=== PATIENT | female | born 2000 | race Two or more races ===

== ENCOUNTER 2024-03-20 09:25 | Outpatient (RCR) | payer MEDICAID, SELFPAY ==
--- NOTE | 2024-03-20 14:38 | CTCCONSULT_ITS ---
[address] [address] RE: NIKOLAY QUISPE.: 2000 AGE: 23 DATE OF CONSULTATION: 03/20/2024 DIAGNOSIS: ??Thrombocytopenia REFERRING PHYSICIAN: Gerald Quan PRIMARY PHYSICIAN :Gerald Quan REASON FOR CONSULTATION: Thrombocytopenia HISTORY OF PRESENT ILLNESS: Patient is a 23-year-old woman. Patient have 1 child who is about 2 years old. Patient says that sh malik was first time told that she had low platelets while having her delivery. Patient required 1 trans fusion. She does not have any history of bleeding or bruising or prolonged.'s. She had appendectomy and's then was also told that her platelets were low. Patient's platelets have never been lower navid n 50. 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 GI: No nausea, vomiting, diarrhea or constipation. CVS: No palpitations or angina pains. Respiratory: No cough, chest pain or shortness of breath. VITAL SIGNS: Date 03/20/2024 Time 9:41 AM Vital Signs, Weight and PS ? ??T (F) (F) 98.9 ??P 79 ??B/P (mmHg) 97/64 ??Height (in) (inch) 127 ??Weight (lb) (lb) 66 ??BSA(D) (m*2) 2.01 PHYSICAL EXAMINATION: Conjunctivae is white. Oral cavity is dry. Chest is clear to auscultation. No wheezes or rales audible. CVS: Rhythm regular, no murmurs or gallops present. Abdomen is soft. No hepatosplenomegaly. Extremities: No pedal edema or cyanosis. LABORATORY DATA: Date Time ASSESSMENT: Thrombocytopenia likely ITP PLAN: ??Will check for primary and secondary causes of thrombocytopenia Will also check for iron deficiency RTC with the lab draw Need to rule out liver disease and lymphoma CT scan ordered to evaluate for any lymphoma as well as to see her liver and spleen RTC once following labs and imaging is complete in about 3 to 4 weeks Patient given bleeding precautions advised to go to the ER if she has noted any petechiae any bleedin g bruising or any cut which does not heal Patient advised to avoid falls ORDERS: Comprehensive Metabolic Panel - 12 + CBC with Auto Diff Lactate Dehydrogenase (LDH) + Assay Of Haptoglobin Quant + Ferritin + Iron Panel + Reticulocyte Count + Vitamin B-12 + Folic Acid; Serum + Total and Direct Bilirubin + Bilirubin Total + Bilirubin Direct + Rheumatoid Factor + MERVIN - Antinuclear Antibody VW panel: PTT, VIII activity, Ristocetin cofactor, vW factor antigen, vW antigen mltimeric analysis CT Scan + Abdomen + Chest + With Contrast MD Follow Up 3 Week + Hep A, B and C panel + RETURN TO CLINIC: cc: Jackeline Quan, Referring: Gerald Quan Electronically Signed 03/20/2024 at 2:34 PM Florin Hogan MD Patient: NIKOLAY QUISPE : 2000 MR#: [id number] Account: [id number] FOLLOW UP NOTE Page 2 of 2
== END 2024-04-01 23:59 | disposition home or self-care (01) ==
LOC: SCTC 09:25
PROVIDERS: PCP Physician Assistant; Referring Provider Physician Assistant; Visit Provider Internal Medicine Hematology & Oncology
DX: D69.6 Thrombocytopenia, unspecified (principal)
CPT/HCPCS: 99213; G0463

== ENCOUNTER 2024-04-06 08:17 | Outpatient (RCR) | payer MEDICAID, SELFPAY | END 2024-05-02 23:59 | disposition home or self-care (01) | LOC: SCTC 08:17 | PROVIDERS: PCP Physician Assistant; Referring Provider Physician Assistant; Visit Provider Nurse Practitioner Family | DX: D50.9 Iron deficiency anemia, unspecified (principal); N92.0 Excessive and frequent menstruation with regular cycle; Z86.2 Personal history of diseases of the blood and blood-forming organs and certain disorders involving the immune mechanism | CPT/HCPCS: 99212; G0463 ==

== ENCOUNTER → 2024-05-18 | Outpatient (CLI) | payer MEDICAID, SELFPAY ==
[2024-05-17 14:17] LABS: Basophils % (Auto) 1 % (0-2.5); Eosinophils # (Auto) 0.1 Thou/mm3 (0.0-0.5); Eosinophils % (Auto) 2 % (0-10); Hematocrit 39.7 % (36.0-46.0); Hemoglobin 13.2 g/dL (12.0-16.0); Immature Granulocytes % (Auto) 0 % (0-0); Immature Granulocytes Auto 0.01 Thou/mm3 (0.00-0.00); Lymphocytes # (Auto) 1.9 Thou/mm3 (1.0-4.8); Lymphocytes % (Auto) 34 % (10-50); Mean Corpuscular HGB Conc 33.2 g/dl (31.0-37.0); Mean Corpuscular Hemoglobin 26.5 pg (25.0-35.0); Mean Corpuscular Volume 80 fL (80-100); Monocytes # (Auto) 0.3 Thou/mm3 (0.0-0.8); Monocytes % (Auto) 6 % (0-12); Neutrophils # (Auto) 3.2 Thou/mm3 (1.8-7.7); Neutrophils % (Auto) 57 % (37-80); Nucleated Red Blood Cell % 0 /100 WBC (0); Platelet Count 140 Thou/mm3 (140-440); RDW Standard Deviation 45.2 fL (36.4-46.3); Red Blood Count 4.99 Miln/mm3 (4.00-5.20); White Blood Count 5.5 Thou/mm3 (3.6-11.0)
[2024-05-17 15:08] LABS: HCG Qualitative,Urine Negative
[2024-05-17 15:13] LABS: Folate 16.06 ng/mL (>5.38); Vitamin B12 303 pg/mL (211-911)
[2024-05-17 15:14] LABS: Ferritin 11 ng/mL (7.3-270.7); Total Iron Binding Capacity 340 mcg/dL (250-425)
[2024-05-17 15:19] LABS: Alanine Aminotransferase 10 U/L (10-49); Albumin, Serum 4.9 gm/dL (3.5-5.0); Albumin/Globulin Ratio 2.1 (1.2-2.2); Alkaline Phosphatase 90 U/L (46-116); Anion Gap 10 (7-16); Aspartate Amino Transferase 13 U/L (0-34); BUN/Creatinine Ratio 14 Ratio (12-20); Bilirubin,Total 0.5 mg/dL (0.3-1.2); Blood Urea Nitrogen 10 mg/dL (9-23); Calcium 9.8 mg/dL (8.3-10.6); Calcium (Corrected) 9.8 mg/dL (8.5-10.1); Carbon Dioxide 24.1 mMol/L (20.0-31.0); Chloride 106 mMol/L (98-107); Creatinine (Component) 0.7 mg/dL (0.6-1.3); Globulin 2.3 gm/dL (2.3-3.5); Glucose 90 mg/dL (74-106); Osmolality,Calculated 278 (275-295); Potassium 4.8 mMol/L (3.4-5.1); Sodium 140 mMol/L (136-145); Total Protein 7.2 gm/dL (5.7-8.2); eGFR > 60 See Note
[2024-05-17 15:23] LABS: Iron 40 mcg/dL (50-170); Percent Iron Saturation 11 % (20-55); Unsaturated Iron Binding 300 (225-295)
--- NOTE | 2024-05-18 10:30 | XR_ITS ---
Examination: CT chest, without intravenous contrast. CT abdomen, without intravenous contrast.. 2-D sagittal and coronal reconstructions. 3-D reconstructions. Date and time of exam:May 18, 2024 1032 hours INDICATIONS: Diagnosis thrombocytopenia unspecified diagnosis December 2023, appendix surgery December 2023 CTDI vol (mgy) 5.52 DLP (MGycm)296 Technique: Multiple CT images, 3.0 mm slice thickness, obtained chest, abdomen with the high-resolution 64 slice scanner.. Sagittal and coronal 2-D reconstructions are obtained. 3-D reconstructions Low dose protocols were performed. One or more of the following dose reduction techniques were used; automated exposure control, adjustment of the mA and/or KV according to patient size, use of iterative reconstruction technique. Findings: No thoracic aortic aneurysm dilatation No pulmonary artery emboli No paratracheal tracheobronchial or bronchopulmonary adenopathy No pneumonia, pulmonary edema or pleural disease No liver or splenic lesion No gallstones No pancreatic or adrenal mass No renal or ureteral calculi, no hydronephrosis Aorta normal size 25 mm fat-containing umbilical hernia No bowel obstruction Absent appendix IMPRESSION: No mediastinal lymphadenopathy No pneumonia, pulmonary edema, pleural disease or pulmonary nodules No abdominal mass
== END | disposition home or self-care (01) ==
PROVIDERS: PCP Physician Assistant; Referring Provider Nurse Practitioner Family; Visit Provider Internal Medicine Hematology & Oncology
DX: D69.6 Thrombocytopenia, unspecified (principal); Z32.00 Encounter for pregnancy test, result unknown
CPT/HCPCS: 36415; 71260; 74160; 80053; 81025; 82607; 82728; 82746; 83540; 83550; 85025; A4649; Q9967

== ENCOUNTER 2024-05-25 14:24 | Outpatient (RCR) | payer MEDICAID, SELFPAY | END 2024-06-02 23:59 | disposition home or self-care (01) | LOC: SCTC 14:24 | PROVIDERS: PCP Physician Assistant; Referring Provider Physician Assistant; Visit Provider Nurse Practitioner Family | DX: D50.9 Iron deficiency anemia, unspecified (principal); K42.9 Umbilical hernia without obstruction or gangrene; Z86.2 Personal history of diseases of the blood and blood-forming organs and certain disorders involving the immune mechanism | CPT/HCPCS: 99212; G0463 ==

== ENCOUNTER 2024-06-12 13:29 | Outpatient (RCR) | payer MEDICAID, SELFPAY | END 2024-06-30 23:59 | disposition home or self-care (01) | LOC: SCTC 13:29 | PROVIDERS: PCP Physician Assistant; Referring Provider Physician Assistant; Visit Provider Nurse Practitioner Family | DX: D50.9 Iron deficiency anemia, unspecified (principal) | CPT/HCPCS: 96374; 96375; J2919; J3490; J7040; J7050; Q0138 ==

== ENCOUNTER 2024-06-16 13:03 | Emergency (ER) | payer MEDICAID, SELFPAY ==
[2024-06-16 13:36] VITALS: BP 98/67; PULSE 128; RESP 20; TEMP 37.8; O2SAT 98
[2024-06-16 14:05] VITALS: TEMP 37.8
[2024-06-16] MEDS: DEXAMETHASONE SOD PHOS INJ 10 MG/ML VIAL PO (14:05)
[2024-06-16] MEDS: ACETAMINOPHEN 500 MG TABLET 1000 MG PO (14:05)
--- NOTE | 2024-06-16 14:13 | EDNOTE_ITS ---
Upper Respiratory Inf. RME/HPI General Chief Complaint: Flu Like Symptoms Stated Complaint: Fever, cough, sore throat, ears Time Seen by Provider: 06/16/24 13:10 Source: patient Arrival date/time: 06/16/24 13:03 23-year-old female with no known medical history presents to the emergency room with a chief complaint of a fever, cough, congestion, sore throat x 2 days Mode of arrival: ambulatory Limitations: no limitations Related Data Home Medications ?Medication ?Instructions ?Recorded ?Confirmed cholecalciferol (vitamin D3) 25 1 mcg PO 1XD 03/23/22 03/23/22 mcg (1,000 unit) chewable tablet (Vitamin D3) ferrous sulfate 325 mg (65 mg 325 mg PO BID 03/23/22 1 05/23/21 iron) tablet (Iron (ferrous sulfate)) vits no.124-ferrous fum 1 tab PO 1XD 03/23/22 03/23/22 27 mg iron-folic acid 800 mcg tablet ( Vitamin) ursodiol 300 mg capsule 300 mg PO BID 03/23/2203/23 Previous Rx's ?Medication ?Instructions ?Recorded aluminum-mag hydroxide-simethicone 7.5 ml PO QID PRN i ndigestion #355 01/05/23 400 mg-400 mg-40 mg/5 mL oral susp mL (Maalox Maximum Strength) metoclopramide HCl 10 mg tablet 10 mg PO Q6H PRN nause a and 08/12/23 (Reglan) vomiting #20 tabs pantoprazole 40 mg tablet,delayed 40 mg PO QDAY #20 ta bs 08/12/23 release (Protonix) acetaminophen 325 mg capsule 650 mg (2 x 325 mg) PO QI D PRN 06/16/24 fever or pain 7 days #30 caps albuterol sulfate 90 mcg/actuation 2 inh inhalation Q6 H PRN shortness 06/16/24 breath activated powder inhaler of breath #1 ea ibuprofen 600 mg tablet 600 mg PO Q8H PRN fever or p ain 06/16/24 #20 tabs Allergies Allergy/AdvReac Type Severity Reaction Status Date / Time No Known Drug Allergies Allergy Verified 06/16/24 13:08 Review of Systems Review of Systems Systems Reviewed: All systems reviewed, normal except as documented Constitutional Constitutional: Reports system reviewed and no additional complaints, except as documented, Denies fatigue, Reports fever(s), Denies headache(s) and Reports weakness Eyes Eyes: Reports system reviewed and no additional complaints, except as documented, Denies blurry vision and Denies change in vision ENT Ears, Nose, Mouth, and Throat: Reports system reviewed and no additional comp laints, except as documented, Denies otalgia, Denies headache(s), Denies nasal congestion, Denies throat swelling and Denies vertigo Cardiovascular Cardiovascular: Reports system reviewed and no additional complaints, except as documented, Denies chest pain, Reports dyspnea and Denies dyspnea on exertion Respiratory Respiratory: Reports system reviewed and no additional complaints, except as documented, Reports chest congestion, Reports cough, Reports dyspnea, Denies dyspnea on exertion and Denies wheezing Gastrointestinal Gastrointestinal: Reports system reviewed and no additional complaints, except as documented, Denies abdominal pain, Denies cramping, Denies nausea and Denies vomiting Genitourinary Genitourinary: Reports system reviewed and no additional complaints, except as documented Musculoskeletal Musculoskeletal: Reports system reviewed and no additional complaints, except as documented and Denies back pain Integumentary/Breasts Skin/Breast: Reports system reviewed and no additional complaints, except as documented and Denies wounds Neurologic Neurologic: Reports system reviewed and no additional complaints, except as documented, Denies confusion, Denies headache(s), Denies lack of coordination, Denies vertigo and Reports weakness Psychiatric Psychiatric: Reports system reviewed and no additional complaints, except as documented, Denies anxiety, Denies confusion, Denies depression, Denies paranoia, Denies suicidal ideation and Denies tactile hallucinations Endocrine Endocrine: Reports system reviewed and no additional complaints, except as documented and Denies fatigue Hematologic/Lymphatic Hematologic/Lymphatic: Reports system reviewed and no additional complaints, except as documented and Denies lymphadenopathy Allergic/Immunologic Allergic/Immunologic: Reports system reviewed and no additional complaints, except as documented, Denies throat swelling, Denies urticaria and Denies wheezing Past Medical History Past Medical History NEUROLOGIC: Negative Neurological Disorders or Seizures CARDIAC: Negative Cardiac Disorders or Congestive Heart Failure RESPIRATORY: Negative Chronic Obstructive Pulmonary Disease (COPD) or Asthma GASTROINTESTINAL: Negative Gastrointestinal Disorders or Hepatitis GENITOURINARY: Negative Genitourinary Disorders or Renal Disease REPRODUCTIVE: Negative Pelvic Inflammatory Disease MUSCULOSKELETAL: Negative Musculoskeletal Disorders ENDOCRINE: Negative Endocrine Disorders, Diabetes Mellitus Type 1 or Diabetes Mellitus Type 2 HEMATOLOGIC: Positive Blood Disorders, Anemia and Clotting Problems (low platelets); Negative Leukemia, Hemophilia, Thalassemia or Sickle Cell Disease OTHER HISTORY: Positive Blood Transfusions; Negative Hospitalization, Autoimmune Disease, Down Syndrome, Developmental Delay, Shingles, Falls, Blood Transfusion Reaction, Anesthesia Reactions, Organ Transplant, Chemotherapy, Radiation Therapy, Hyperbaric Therapy, MRSA, VRSA, Vancomycin-Resistant Enterococci, Human Immunodeficiency Virus (HIV), Chicken Pox, Measles, Mumps, Rubella ([place] Measles), Pertussis, Clostridium Difficile or Cancer Family History FAMILY HISTORY: Negative Family Psychiatric Problems, Family Respiratory Disorders, Family Cardiac Disorders or Family Gastrointestinal Problems Surgical History SURGICAL: Negative Section or Organ Transplant Social History SMOKING STATUS: Never smoker ED Exam General Limitations: Present no limitations General appearance: Present alert and in no apparent distress Head Head exam: Present atraumatic Eye Eye exam: Present normal appearance, PERRL and EOMI ENT ENT exam: Present normal exam, normal oropharynx and mucous membranes moist Neck Neck exam: Present normal inspection, full ROM and trachea midline Chest Chest inspection: Present normal inspection and symmetric chest wall rise Respiratory Respiratory exam: Present normal lung sounds bilaterally; Absent respiratory distress, wheezes, stridor, accessory muscle use or prolonged expiratory phase Cardiovascular Cardiovascular exam: Present regular rate, normal rhythm, tachycardia and normal heart sounds Abdominal Exam Abdominal exam: Present soft and normal bowel sounds Extremities Exam Extremities exam: Present normal inspection and full ROM Back Exam Back exam: Present normal inspection and full ROM Neurological Exam Neurological exam: Present alert, oriented X3 and CN II-XII intact Psychiatric Psychiatric exam: Present normal affect and normal mood Skin Skin exam: Present warm, dry, intact and normal color Course Quality Measures none Orders Category Date Time Status Acetaminophen Tab [Tylenol ES Tab] Med 06/16/24 13:59 Discontinued 1,000 mg PO X1 ONE Dexamethasone Inj [Decadron Inj] Med 06/16/24 13:59 Discontinued 10 mg PO X1 ONE Vital Signs Vital signs: Vital Signs Temperature 100.1 F 06/16/24 13:36 Pulse Rate 128 H 06/16/24 13:36 Respiratory Rate 20 06/16/24 13:36 Blood Pressure 98/67 06/16/24 13:36 Pulse Oximetry (%) 98 06/16/24 13:36 Oxygen Delivery Method Room Air 06/16/24 13:36 O2 saturation 98% within normal limits Upper Respiratory Infection MDM Narrative MDM Narrative:: 23-year-old female with no known medical history presents to the emergency room with a chief complaint of a fever, cough, congestion, sore throat x 2 days Patient is hemodynamically stable and in no apparent distress Patient has clear bilateral lung sounds there is no wheezing no abnormal breath sounds. The patient is afebrile. There is no abdominal breathing or any accessory muscle use. Patient tested positive for influenza A Patient was discharged and educated to follow-up with primary care provider and return to the emergency room for any evidence of worsening signs or symptoms Patient data External records reviewed:: [facility] previous records Clinical information provided by:: patient Social determinants that could affect healthcare access:: none Patient has the following chronic illnesses:: No chronic illness How is presenting disease/condition affected by chronic disease/condition?: no chronic disease Evaluation data The following diagnostics were reviewed and interpreted by me:: lab results and radiology exam(s) Lab and/or radiology exams considered but not ordered:: Labs and radiology exams considered and ordered Interpretation Summary: N/A Medications / Prescriptions Medications or Prescriptions considered but not ordered:: Medication given Medication administrations:: Medication Administration History Discontinued Medications Acetaminophen (Acetaminophen 500 Mg Tablet) 1,000 mg PO X1 ONE Stop: 06/16/24 14:00 Last Admin: 06/16/24 14:05 Dose: 1,000 mg Documented By: Dexamethasone Sodium Phosphate (Dexamethasone Sod Phos Inj 10 Mg/Ml Vial) 10 mg PO X1 ONE Stop: 06/16/24 14:00 Last Admin: 06/16/24 14:05 Dose: 10 mg Documented By: Medication given Consultations Consultation(s) initiated? (list below): No Diagnosis Upper Respiratory Differential Diagnosis: upper respiratory infection, viral infection, bronchitis, influenza and pharyngitis Most likely diagnosis given after review of the tests above:: Influenza A Admission Indicated Admission indicated?: not indicated Admission Request Was there a request for admission?: No Disposition Plan Disposition Plan: Discharge Discharge Attestation Discharge Attestation: The patient and all family members were given an opportunity to ask questions and understood the discharge instructions. Discharge instructions specifically effects, indications for sooner follow up or return to the emergency department, and the expected course of current diagnosis. Patient condition: Stable Discharge Plan Plan Patient Disposition: HOME (Self Care) Disposition Comment: Stable Prescriptions/Referrals Prescriptions/Med Rec: New acetaminophen 325 mg capsule 650 mg PO QID PRN (Reason: fever or pain) 7 Days Qty: 30 0RF albuterol sulfate 90 mcg/actuation aerosol powdr breath activated 2 inh inhalation Q6H PRN (Reason: shortness of breath) Qty: 1 0RF ibuprofen 600 mg tablet 600 mg PO Q8H PRN (Reason: fever or pain) Qty: 20 0RF No Action alum-mag hydroxide-simeth [Maalox Maximum Strength] 400-400-40 mg/5 mL suspension 7.5 ml PO QID PRN (Reason: indigestion) Qty: 355 0RF ferrous sulfate [Iron (ferrous sulfate)] 325 mg (65 mg iron) Tablet 325 mg PO BID ursodiol 300 mg Capsule 300 mg PO BID cholecalciferol (vitamin D3) [Vitamin D3] 25 mcg (1,000 unit) Tablet,Chewable 1 mcg PO 1XD Vitamin 27 mg iron- 800 mcg Tablet 1 tab PO 1XD pantoprazole [Protonix] 40 mg tablet,delayed release (DR/EC) 40 mg PO QDAY Qty: 20 0RF metoclopramide HCl [Reglan] 10 mg tablet 10 mg PO Q6H PRN (Reason: nausea and vomiting) Qty: 20 0RF Problem List Clinical Impression: Influenza Patient/Caregiver Discharge Instructions Education Materials: ED Influenza (Adult) Additional Instructions: Please follow-up with your primary care provider in the next 24 to 48 hours. You tested positive for influenza. Treatment for this is symptom management. Please continue to take ibuprofen and Tylenol for fever management. Please increase your oral fluid intake. For any evidence of worsening signs or symptoms return to the emergency room immediately. Print Language: Greenlandic Stand Alone Forms: Breanna Award Info., Patient Portal Info Letter PA/CUSTOMER SUPPORT EXECUTIVE Supervising Physician PA/CUSTOMER SUPPORT EXECUTIVE Supervising Physician: Dr Pham
[2024-06-16 15:42] VITALS: BP 103/69; PULSE 109; RESP 18; TEMP 36.9; O2SAT 97
== END 2024-06-16 17:06 | disposition home or self-care (01) ==
LOC: SERX 17:33
PROVIDERS: Emergency Provider Emergency Medicine
DX: J10.1 Influenza due to other identified influenza virus with other respiratory manifestations (principal)
CPT/HCPCS: 99282; J1100; A9270

== ENCOUNTER → 2024-07-05 | Outpatient (CLI) | payer MEDICAID, SELFPAY ==
[2024-07-05 16:42] LABS: Basophils % (Auto) 1 % (0-2.5); Eosinophils # (Auto) 0.1 Thou/mm3 (0.0-0.5); Eosinophils % (Auto) 2 % (0-10); Hematocrit 36.6 % (36.0-46.0); Immature Granulocytes % (Auto) 0 % (0-0); Immature Granulocytes Auto 0.01 Thou/mm3 (0.00-0.00); Immature Reticulocyte Fraction 10.6 % (3.0-15.9); Lymphocytes # (Auto) 1.7 Thou/mm3 (1.0-4.8); Lymphocytes % (Auto) 31 % (10-50); Mean Corpuscular HGB Conc 32.8 g/dl (31.0-37.0); Mean Corpuscular Hemoglobin 27.1 pg (25.0-35.0); Mean Corpuscular Volume 83 fL (80-100); Monocytes # (Auto) 0.3 Thou/mm3 (0.0-0.8); Monocytes % (Auto) 6 % (0-12); Neutrophils # (Auto) 3.4 Thou/mm3 (1.8-7.7); Neutrophils % (Auto) 61 % (37-80); Nucleated Red Blood Cell % 0 /100 WBC (0); Platelet Count 261 Thou/mm3 (140-440); RDW Standard Deviation 46.5 fL (36.4-46.3); Red Blood Count 4.43 Miln/mm3 (4.00-5.20); Reticulocyte % (Auto) 1.3 % (0.5-1.5); Reticulocyte Absolute Auto 55.4 Biln/L (25.0-75.0); Reticulocyte Hgb Content 34.5 pg (28.0-35.0); White Blood Count 5.5 Thou/mm3 (3.6-11.0)
[2024-07-05 16:54] LABS: Alanine Aminotransferase 11 U/L (10-49); Albumin, Serum 4.1 gm/dL (3.5-5.0); Albumin/Globulin Ratio 1.6 (1.2-2.2); Alkaline Phosphatase 96 U/L (46-116); Anion Gap 8 (7-16); Aspartate Amino Transferase 11 U/L (0-34); BUN/Creatinine Ratio 22 Ratio (12-20); Bilirubin,Total 0.4 mg/dL (0.3-1.2); Blood Urea Nitrogen 13 mg/dL (9-23); Calcium 8.9 mg/dL (8.3-10.6); Calcium (Corrected) 8.9 mg/dL (8.5-10.1); Carbon Dioxide 24.3 mMol/L (20.0-31.0); Chloride 111 mMol/L (98-107); Creatinine (Component) 0.6 mg/dL (0.6-1.3); Globulin 2.5 gm/dL (2.3-3.5); Glucose 88 mg/dL (74-106); Osmolality,Calculated 284 (275-295); Sodium 143 mMol/L (136-145); Total Protein 6.6 gm/dL (5.7-8.2); eGFR > 60 See Note
[2024-07-05 16:56] LABS: Ferritin 37 ng/mL (7.3-270.7); Iron 37 mcg/dL (50-170); Percent Iron Saturation 13 % (20-55); Total Iron Binding Capacity 268 mcg/dL (250-425); Unsaturated Iron Binding 231 (225-295)
[2024-07-05 16:57] LABS: Folate 18.08 ng/mL (>5.38); Vitamin B12 418 pg/mL (211-911)
== END | disposition home or self-care (01) ==
LOC: SCTO 14:06
PROVIDERS: PCP Physician Assistant; Referring Provider Nurse Practitioner Family; Visit Provider Nurse Practitioner Family
DX: D69.6 Thrombocytopenia, unspecified (principal)
CPT/HCPCS: 36415; 80053; 82607; 82728; 82746; 83540; 83550; 85025; 85046

== ENCOUNTER 2024-07-10 14:31 | Outpatient (RCR) | payer MEDICAID, SELFPAY | END 2024-07-31 23:59 | disposition home or self-care (01) | LOC: SCTC 14:31 | PROVIDERS: PCP Physician Assistant; Referring Provider Physician Assistant; Visit Provider Nurse Practitioner Family | DX: Z09 Encounter for follow-up examination after completed treatment for conditions other than malignant neoplasm (principal); Z86.2 Personal history of diseases of the blood and blood-forming organs and certain disorders involving the immune mechanism; E61.1 Iron deficiency | CPT/HCPCS: 99212; G0463 ==

== ENCOUNTER → 2024-08-16 | Outpatient (CLI) | payer MEDICAID, SELFPAY ==
[2024-08-16 15:40] LABS: Basophils % (Auto) 0 % (0-2.5); Eosinophils # (Auto) 0.1 Thou/mm3 (0.0-0.5); Eosinophils % (Auto) 2 % (0-10); Hematocrit 36.5 % (36.0-46.0); Hemoglobin 12.5 g/dL (12.0-16.0); Immature Granulocytes % (Auto) 0 % (0-0); Immature Granulocytes Auto 0.03 Thou/mm3 (0.00-0.00); Immature Reticulocyte Fraction 10.8 % (3.0-15.9); Lymphocytes # (Auto) 2.1 Thou/mm3 (1.0-4.8); Lymphocytes % (Auto) 30 % (10-50); Mean Corpuscular HGB Conc 34.2 g/dl (31.0-37.0); Mean Corpuscular Volume 85 fL (80-100); Monocytes # (Auto) 0.3 Thou/mm3 (0.0-0.8); Monocytes % (Auto) 4 % (0-12); Neutrophils # (Auto) 4.4 Thou/mm3 (1.8-7.7); Neutrophils % (Auto) 63 % (37-80); Nucleated Red Blood Cell % 0 /100 WBC (0); Platelet Count 190 Thou/mm3 (140-440); RDW Standard Deviation 40.8 fL (36.4-46.3); Red Blood Count 4.31 Miln/mm3 (4.00-5.20); Reticulocyte % (Auto) 1.3 % (0.5-1.5); Reticulocyte Absolute Auto 56.9 Biln/L (25.0-75.0); Reticulocyte Hgb Content 31.1 pg (28.0-35.0)
[2024-08-16 16:02] LABS: Alanine Aminotransferase 11 U/L (10-49); Albumin, Serum 4.3 gm/dL (3.5-5.0); Albumin/Globulin Ratio 1.7 (1.2-2.2); Alkaline Phosphatase 92 U/L (46-116); Anion Gap 7 (7-16); Aspartate Amino Transferase 13 U/L (0-34); BUN/Creatinine Ratio 13 Ratio (12-20); Bilirubin,Total 0.4 mg/dL (0.3-1.2); Blood Urea Nitrogen 9 mg/dL (9-23); Carbon Dioxide 24.9 mMol/L (20.0-31.0); Chloride 110 mMol/L (98-107); Creatinine (Component) 0.7 mg/dL (0.6-1.3); Globulin 2.6 gm/dL (2.3-3.5); Glucose 89 mg/dL (74-106); Osmolality,Calculated 280 (275-295); Potassium 4.2 mMol/L (3.4-5.1); Sodium 142 mMol/L (136-145); Total Protein 6.9 gm/dL (5.7-8.2); eGFR > 60 See Note
[2024-08-16 16:21] LABS: Folate 11.82 ng/mL (>5.38); Vitamin B12 414 pg/mL (211-911)
[2024-08-16 16:22] LABS: Ferritin 48 ng/mL (7.3-270.7); Iron 38 mcg/dL (50-170); Percent Iron Saturation 14 % (20-55); Total Iron Binding Capacity 269 mcg/dL (250-425); Unsaturated Iron Binding 231 (225-295)
== END | disposition home or self-care (01) ==
LOC: SCTO 14:50
PROVIDERS: PCP Family Medicine; Referring Provider Nurse Practitioner Family; Visit Provider Nurse Practitioner Family
DX: D69.6 Thrombocytopenia, unspecified (principal); E61.1 Iron deficiency
CPT/HCPCS: 36415; 80053; 82607; 82728; 82746; 83540; 83550; 85025; 85046

== ENCOUNTER 2024-08-23 14:04 | Outpatient (RCR) | payer MEDICAID, SELFPAY | END 2024-08-30 23:59 | disposition home or self-care (01) | LOC: SCTC 14:04 | PROVIDERS: Referring Provider Nurse Practitioner Family; Visit Provider Nurse Practitioner Family | DX: D50.9 Iron deficiency anemia, unspecified (principal); Z86.2 Personal history of diseases of the blood and blood-forming organs and certain disorders involving the immune mechanism | CPT/HCPCS: 99212; G0463 ==

== ENCOUNTER 2024-09-27 13:48 | Outpatient (RCR) | payer MEDICAID, SELFPAY | END 2024-09-30 23:59 | disposition home or self-care (01) | LOC: SCTC 13:48 | PROVIDERS: PCP Physician Assistant; Referring Provider Nurse Practitioner Family; Visit Provider Nurse Practitioner Family | DX: D50.9 Iron deficiency anemia, unspecified (principal); Z86.2 Personal history of diseases of the blood and blood-forming organs and certain disorders involving the immune mechanism | CPT/HCPCS: 96365; 96375; A4216; J1756; J2919; J3490; J7040; J7050 ==

== ENCOUNTER → 2024-12-15 | Outpatient (CLI) | payer MEDICAID, SELFPAY ==
[2024-12-15 17:36] LABS: Basophils # (Auto) 0.0 Thou/mm3 (0.0-0.2); Basophils % (Auto) 0 % (0-2.5); Eosinophils # (Auto) 0.1 Thou/mm3 (0.0-0.5); Eosinophils % (Auto) 3 % (0-10); Hematocrit 39.6 % (36.0-46.0); Hemoglobin 13.9 g/dL (12.0-16.0); Immature Granulocytes Auto 0.01 Thou/mm3 (0.00-0.00); Lymphocytes # (Auto) 1.6 Thou/mm3 (1.0-4.8); Lymphocytes % (Auto) 28 % (10-50); Mean Corpuscular HGB Conc 35.1 g/dl (31.0-37.0); Mean Corpuscular Hemoglobin 31.0 pg (25.0-35.0); Mean Corpuscular Volume 88 fL (80-100); Monocytes # (Auto) 0.4 Thou/mm3 (0.0-0.8); Monocytes % (Auto) 7 % (0-12); Neutrophils # (Auto) 3.4 Thou/mm3 (1.8-7.7); Neutrophils % (Auto) 62 % (37-80); Nucleated Red Blood Cell # 0.00 Thou/mm3 (0.00-0.00); Nucleated Red Blood Cell % 0 /100 WBC (0); Platelet Count 137 Thou/mm3 (140-440); RDW Standard Deviation 39.5 fL (36.4-46.3); Red Blood Count 4.48 Miln/mm3 (4.00-5.20); White Blood Count 5.5 Thou/mm3 (3.6-11.0)
[2024-12-15 17:45] LABS: Alanine Aminotransferase 9 U/L (10-49); Albumin, Serum 4.3 gm/dL (3.5-5.0); Albumin/Globulin Ratio 2.2 (1.2-2.2); Alkaline Phosphatase 93 U/L (46-116); Anion Gap 8 (7-16); Aspartate Amino Transferase 14 U/L (0-34); BUN/Creatinine Ratio 13 Ratio (12-20); Bilirubin,Total 0.7 mg/dL (0.3-1.2); Blood Urea Nitrogen 8 mg/dL (9-23); Calcium 9.2 mg/dL (8.3-10.6); Calcium (Corrected) 9.2 mg/dL (8.5-10.1); Carbon Dioxide 23.8 mMol/L (20.0-31.0); Chloride 108 mMol/L (98-107); Creatinine (Component) 0.6 mg/dL (0.6-1.3); Globulin 2.0 gm/dL (2.3-3.5); Glucose 89 mg/dL (74-106); Osmolality,Calculated 276 (275-295); Potassium 4.5 mMol/L (3.4-5.1); Sodium 140 mMol/L (136-145); Total Protein 6.3 gm/dL (5.7-8.2); eGFR > 60 See Note
[2024-12-15 17:57] LABS: Folate 15.40 ng/mL (>5.38); Vitamin B12 340 pg/mL (211-911)
[2024-12-15 18:07] LABS: Ferritin 48 ng/mL (7.3-270.7); Iron 61 mcg/dL (50-170); Percent Iron Saturation 21 % (20-55); Total Iron Binding Capacity 287 mcg/dL (250-425); Unsaturated Iron Binding 226 (225-295)
== END | disposition home or self-care (01) ==
LOC: COPL 16:16 → SCTO 16:25
PROVIDERS: PCP Physician Assistant; Referring Provider Nurse Practitioner Family; Visit Provider Nurse Practitioner Family
DX: D69.6 Thrombocytopenia, unspecified (principal); E61.1 Iron deficiency
CPT/HCPCS: 36415; 80053; 82607; 82728; 82746; 83540; 83550; 85025

== ENCOUNTER 2024-12-21 10:35 | Outpatient (RCR) | payer MEDICAID, SELFPAY | END 2024-12-31 23:59 | disposition home or self-care (01) | LOC: SCTC 10:35 | PROVIDERS: PCP Physician Assistant; Referring Provider Physician Assistant; Visit Provider Nurse Practitioner Family | DX: Z09 Encounter for follow-up examination after completed treatment for conditions other than malignant neoplasm (principal); Z87.42 Personal history of other diseases of the female genital tract; Z86.2 Personal history of diseases of the blood and blood-forming organs and certain disorders involving the immune mechanism | CPT/HCPCS: 99212; G0463 ==

== ENCOUNTER 2025-02-09 14:58 | Outpatient (AMB) | payer MEDICAID, SELFPAY ==
--- NOTE | 2025-02-09 15:00 | AMB.OBINITIA ---
Vital Signs 02/09/25 15:12 Height 1.68 m Height Method Stated Weight 62.823 kg Weight Measurement Method Standing Scale BMI 22.3 BP 108/71 Blood Pressure Source Automatic Cuff Blood Pressure Location Right Upper Arm Position Sitting Respiration 17 Pulse 74 Pulse Source Monitor Temp 98.6 F Temp Source Temporal Artery Scan Pulse Oximetry (%) 99 Oxygen Delivery Method Room Air Allergies/Home Meds Allergies & Medications Allergies ferumoxytol (From [employer]) Allergy (Verified 02/09/25 15:13) No Known Drug Allergies Allergy (Verified 02/09/25 15:13) Medication Reconciliation cholecalciferol (vitamin D3) 25 mcg (1,000 unit) chewable tablet (Vitamin D3) 1 mcg PO 1XD 03/23/22 [History Confirmed 02/09/25] ferrous sulfate 325 mg (65 mg iron) tablet (Iron (ferrous sulfate)) 325 mg PO BID 03/23/22 [History Confirmed 02/09/25] vits no.124-ferrous fum 27 mg iron-folic acid 800 mcg tablet ( Vitamin) 1 tab PO 1XD 03/23/22 [History Confirmed 02/09/25] ursodiol 300 mg capsule 300 mg PO BID 03/23/22 [History Confirmed 02/09/25] aluminum-mag hydroxide-simethicone 400 mg-400 mg-40 mg/5 mL oral susp (Maalox Maximum Strength) 7.5 ml PO QID PRN indigestion #355 mL 01/05/23 [Rx Confirmed 02/09/25] metoclopramide HCl 10 mg tablet (Reglan) 10 mg PO Q6H PRN nausea and vomiting #20 tabs 08/12/23 [Rx Confirmed 02/09/25] pantoprazole 40 mg tablet,delayed release (Protonix) 40 mg PO QDAY #20 tabs 08/12/23 [Rx Confirmed 02/09/25] albuterol sulfate 90 mcg/actuation breath activated powder inhaler 2 inh inhalation Q6H PRN shortness of breath #1 ea 06/16/24 [Rx Confirmed 02/09/25] ibuprofen 600 mg tablet 600 mg PO Q8H PRN fever or pain #20 tabs 06/16/24 [Rx Confirmed 02/09/25] ferrous sulfate 325 mg (65 mg iron) tablet 325 mg PO BID #60 tabs 02/09/25 [Rx] vitamin-ferrous fumarate 28 mg iron-folic acid 800 mcg tablet ( Vitamins with Minerals) 1 tab PO QDAY #60 tabs 02/09/25 [Rx] Intake Visit Data Collection New Patient or Established: Established Patient (seen at [facility] within 3 years) Reason for Visit:: OBI Seen by Clinical Staff ONLY (RN/MA): No Grocery Caddy Required: No Do You Feel Safe at Home: Yes Authorities Contacted: N/A PCP or OBGYN visit in last 3 months: No Hx Now: Yes Are you currently on any form of Control: No Pain Present Currently: No Pain Scale Used: Krause-Gonzalez/Numerical Pain scale:: 0 Smoking Status Smoking Status: Never smoker Questionnaires Covid-19 Vaccine Questionnaire Has patient been vacinated for Covid-19 Have you been vacinated for Covid-19: No PHQ-9 PHQ-2 Over the last 2 weeks, how often have you been bothered by any of the following problems? 1. Little interest or pleasure in doing things: not at all 2. Feeling down, depressed, or hopeless: not at all Total score: 0 PHQ-9 3. Trouble falling or staying asleep, or sleeping too much: Not at all 4. Feeling tired or having little energy: Not at all 5. Poor appetite or overeating: Not at all 6. Feeling bad about yourself - or that you are a failure or have let yourself or your family down: Not at all 7. Trouble concentrating on things, such as reading the newspaper or watching television: Not at all 8. Moving or speaking so slowly that other people could have noticed? - Or the opposite - being so fidgety or restless that you have been moving around a lot more than usual: not at all 9. Thoughts that you would be better off or of hurting yourself in some way: Not at all Total score: 0 If you checked off any problems, how difficult have these problems made it for you to do your work, take care of things at home, or get along with other people?: not difficult at all Source: Developed by Drs. Vick Henry, Kathleen Queen, Nader Elkins and colleagues, with an educational ayden from [employer]. Depression screen completed yes Social History Living Situation History Marital Status: Lives With: Family Housing: Trailer Home Housing Other:: mobile home Tobacco History Smoking Status: Never smoker Second Hand Smoke Exposure: No Alcohol History Alcohol Intake: Never Domestic Abuse History Do You Feel Safe at Home: Yes History of Present Illness HPI Narrative 24-year-old 2 para 1 for OBI. Patient is very happy about being . Last period November 20, 2024. Estimated due date August 27, 2025. Patient has a history of severe anemia. She had a IV iron transfusion July 25, 2024 patient was using Depo to prevent heavy menses. 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 And she had her appendix out. Denies social habits. Denies chronic illness. Denies any complaints of miscarriage at this time. 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 Patient has a history of severe anemia. She had iron infusion July 25, 2024. Happy about the . Last period November 20, 2024. Estimated due date August 27, 2024. Unsure dates. She denies bleeding, leaking or contractions. NIPT and carrier screens. OB panel. Iron to take twice daily. I refilled prenatals. Schedule patient with Dr. Taylor for anatomy scan and follow-up. Discussed SAB precautions. Return in 4 weeks OB to Menstrual History Menstrual reliability: approximate (month known) Flow: normal Menstrual regularity: regular Monthly: Yes Age at menarche: 13 On control pills at conception: No OB History : 2 Para: 1 # of Living Children: 1 Delivery History 1st : Child's name: MARK GONZALEZ date: 03/24/22 sex: male Gestational age at delivery (weeks): 38 Delivery type: vaginal weight (lbs): 3175.147 g History of depression before or after : No Infection History & Risk Evaluation History of STDs: none Patient or partner has history of Genital Herpes: No Genetic Screening & History Genetic Screening/Teratology Counseling - Includes patient, baby's father, or anyone in either family with: 1. Patient's age 35 years or older as of estimated date of delivery: No 2. Thalassemia (Luxembourgish, Turkmen, Mediterranean, or Background); MCV less than 80: No 4. Congenital Heart Defect: No 5. Down Syndrome: No 6. Nate-Sachs (Ashkenazi Denominational, Cajun, Mosotho Tanzanian): No 7. Ankush Disease (Ashkenazi Denominational): No 8. Familial Dysautonomia (Ashkenazi Denominational): No 9. Sickle Cell Disease or Trait (): No 10. Hemophilia or other blood disorders: No 11. Muscular Dystrophy: No 12. Cystic Fibrosis: No 13. Hall's Chorea: No 14. Mental Retardation/Autism: No 15. Other inherited genetic or chromosomal disorder: No 16. Maternal Metabolic Disorder (EG,TYPE 1 Diabetes, PKU): No 17. Patient or baby's father had a child with defects not listed above: No 18. Recurrent loss or a stillbirth: No 19. Medications (including supplements, vitamins, herbs or otc drugs)/illicit/recreational drugs/alcohol since last menstrual period: No 20. Any other: No Infection History 1. Live with someone with TB or exposed to TB: No 2. Rash or viral illness since last menstrual period: No 3. Hepatitis B,C: No Other (see comments) Source: [employer] Review of Systems Review of Systems Systems Reviewed: All systems reviewed, normal except as documented Exam General Limitations: no limitations General Appearance: alert, in no apparent distress, comfortable, cooperative, healthy appearing, well developed and well groomed ENT ENT exam: Present normal exam, normal oropharynx and mucous membranes moist Neck Neck exam: Present normal inspection, full ROM and trachea midline Chest Chest inspection: Present normal inspection and symmetric chest wall rise Resp Respiratory exam: Present normal lung sounds bilaterally Card Cardiovascular exam: Present regular rate, normal rhythm and normal heart sounds Abdominal Abdominal exam: Present soft and normal bowel sounds Psych Psychiatric exam: Present normal affect and normal mood Office Procedures OBC Clinic LOC & Office Proc's Nursing/Assessment Patient Status: Established Patient OB Clinic Nursing Assessment: Medication Reconciliation, Update PMH in EMR and Vital Signs OB Clinic Coordination of Care: Complex Care and Chronic Disease 1-5, Education Complex Pt/Fam, Consent,records obtained, informed consent, Lab and Imaging orders and Staff clarify orders Special Needs: Heart tones Established Patient Charge Established Patient Point Assignment: 135 Established Patient Point Charge: EP Level 4 (120-155) Assessment & Plan Diagnosis / Problem List (1) Encounter for supervision of high risk in first trimester, antepartum: Status: Acute Plan Patient given prescription for iron 325 twice daily. Increase iron foods. Advised to not take any dairy with her iron. Refill prenatals. NIPT and carrier screens with OB panel. Schedule patient for maternal- medicine with Dr. Taylor. Patient has a follow-up for her anemia next week and she was advised to keep that appointment. Discussed SAB precautions. Return in 4 weeks OB check Additional Plan Follow Up: 4 Weeks (obc)
[2025-02-09 15:12] VITALS: BP 108/71; PULSE 74; RESP 17; TEMP 37; O2SAT 99; BMI 22.3
== END 2025-02-09 15:45 | disposition home or self-care (01) ==
LOC: HODSOBC 14:58
PROVIDERS: PCP Physician Assistant; Referring Provider Physician Assistant; Supervising Provider Advanced Practice Midwife; Visit Provider Advanced Practice Midwife
DX: O09.891 Supervision of other high risk pregnancies, first trimester (principal); O99.011 Anemia complicating pregnancy, first trimester; Z3A.11 11 weeks gestation of pregnancy
CPT/HCPCS: 99214; G0463

== ENCOUNTER 2025-03-07 13:45 | Outpatient (AMB) | payer MEDICAID, SELFPAY ==
[2025-03-07 13:53] VITALS: BP 112/72; PULSE 88; RESP 18; TEMP 37; O2SAT 98; BMI 22.2
--- NOTE | 2025-03-07 13:53 | OBCLNT_ITS ---
Vital Signs 03/07/25 13:53 Height 1.68 m Height Method Stated Weight 62.766 kg Weight Measurement Method Standing Scale BMI 22.2 BP 112/72 Blood Pressure Source Automatic Cuff Blood Pressure Location Right Upper Arm Position Sitting Respiration 18 Pulse 88 Pulse Source Monitor Temp 98.6 F Temp Source Temporal Artery Scan Pulse Oximetry (%) 98 Oxygen Delivery Method Room Air Allergies/Home Meds Allergies & Medications Allergies ferumoxytol (From [employer]) Allergy (Verified 03/07/25 13:53) No Known Drug Allergies Allergy (Verified 03/07/25 13:53) Medication Reconciliation vits no.124-ferrous fum 27 mg iron-folic acid 800 mcg tablet ( Vitamin) 1 tab PO 1XD 03/23/22 [History Confirmed 02/09/25] ursodiol 300 mg capsule 300 mg PO BID 03/23/22 [History Confirmed 02/09/25] pantoprazole 40 mg tablet,delayed release (Protonix) 40 mg PO QDAY #20 tabs 08/12/23 [Rx Confirmed 02/09/25] ferrous sulfate 325 mg (65 mg iron) tablet 325 mg PO BID #60 tabs 02/09/25 [Rx] vitamin-ferrous fumarate 28 mg iron-folic acid 800 mcg tablet ( Vitamins with Minerals) 1 tab PO QDAY #60 tabs 02/09/25 [Rx] Intake Visit Data Collection New Patient or Established: Established Patient (seen at [facility] within 3 years) Reason for Visit:: OBC Seen by Clinical Staff ONLY (RN/MA): No Supervisor Kennel Required: No Do You Feel Safe at Home: Yes Authorities Contacted: N/A PCP or OBGYN visit in last 3 months: Yes Date of Last PCP or OBGYN visit: 02/09/25 Hx Now: Yes Are you currently on any form of Control: No Pain Present Currently: No Pain Scale Used: Krause-Gonzalez/Numerical Pain scale:: 0 Smoking Status Smoking Status: Never smoker Immunizations Flu Vaccine in the Last 12 Months: No Flu Vaccine Exclusion Criteria: No Exclusion Criteria Questionnaires Covid-19 Vaccine Questionnaire Has patient been vacinated for Covid-19 Have you been vacinated for Covid-19: No PHQ-9 PHQ-2 Over the last 2 weeks, how often have you been bothered by any of the following problems? 1. Little interest or pleasure in doing things: not at all 2. Feeling down, depressed, or hopeless: not at all Total score: 0 PHQ-9 3. Trouble falling or staying asleep, or sleeping too much: Not at all 4. Feeling tired or having little energy: Not at all 5. Poor appetite or overeating: Not at all 6. Feeling bad about yourself - or that you are a failure or have let yourself or your family down: Not at all 7. Trouble concentrating on things, such as reading the newspaper or watching television: Not at all 8. Moving or speaking so slowly that other people could have noticed? - Or the opposite - being so fidgety or restless that you have been moving around a lot more than usual: not at all 9. Thoughts that you would be better off or of hurting yourself in some way: Not at all Total score: 0 If you checked off any problems, how difficult have these problems made it for you to do your work, take care of things at home, or get along with other people?: not difficult at all Source: Developed by Drs. Vick Henry, Kathleen Queen, Nader Elkins and colleagues, with an educational ayden from [employer]. 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 Patient has a history of severe anemia. She had iron infusion July 25, 2024. Happy about the . Last period November 20, 2024. Estimated due date August 27, 2024. Unsure dates. She denies bleeding, leaking or contractions. NIPT and adeola r screens. OB panel. Iron to take twice daily. I refilled prenatals. Schedule patient with Dr. Taylor for anatomy scan and follow-up. Discussed SAB precautions. Return in 4 weeks OB to 03/07/25 -?-?-?-?-?-?-?-?-?-?-?-?- 15w 2d 62.766 kg 112/72 absent unknown 15 145 absent No OB complaints. Doing well. Denies leaking bleeding or contractions aFP today. Discussed NIPT results. Follow-up with Dr. Taylor for OB sono. Discussed SAB precautions. Work referral today return in 4 weeks OB check CHE Calculator Estimated Delivery Date Method Current WG Current Estimate 08/27/25 LMP (Certain) 15w 2d Notes Visit Date: 03/07/25 Last Updated by: Tara Case CNM ob panel: B+,abs-,rpr;;nr, rub imm, hbsag-,hiv-,hc-, G/CT-, A1: 5.3, nipt/carrier screen- Visit Date: 02/09/25 Last Updated by: Tara Case CNM 24 yo . lmp 11/20/14. EDC; 08/27/25 Office Procedures OBC Clinic LOC & Office Proc's Nursing/Assessment Patient Status: Established Patient OB Clinic Nursing Assessment: Medication Reconciliation, Update PMH in EMR and Vital Signs OB Clinic Coordination of Care: Complex Care and Chronic Disease 1-5, Education Complex Pt/Fam, Consent,records obtained, informed consent, Lab and Imaging orde rs, Results/Orders obtained and Staff clarify orders Special Needs: Heart tones Established Patient Charge Established Patient Point Assignment: 140 Established Patient Point Charge: EP Level 4 (120-155) Assessment & Plan Diagnosis / Problem List (1) Encounter for supervision of high risk in second trimester, antepartum: Status: Acute Plan Work referral. aFP today. Discussed NIPT and labs. [facility] appointment is pending. Return in 4 weeks OB check Additional Plan Follow Up: 4 Weeks (obc)
== END 2025-03-07 14:23 | disposition home or self-care (01) ==
LOC: HODSOBC 13:45
PROVIDERS: PCP Physician Assistant; Referring Provider Physician Assistant; Supervising Provider Advanced Practice Midwife; Visit Provider Advanced Practice Midwife
DX: O09.92 Supervision of high risk pregnancy, unspecified, second trimester (principal); Z3A.15 15 weeks gestation of pregnancy
CPT/HCPCS: 99214; G0463

== ENCOUNTER 2025-04-04 14:01 | Outpatient (AMB) | payer MEDICAID, SELFPAY ==
[2025-04-04 14:07] VITALS: BP 123/82; PULSE 112; RESP 18; TEMP 36.8; O2SAT 98; BMI 22.5
--- NOTE | 2025-04-04 14:07 | OBCLNT_ITS ---
Vital Signs 04/04/25 14:07 Height 1.68 m Height Method Stated Weight 63.503 kg Weight Measurement Method Standing Scale BMI 22.5 BP 123/82 Blood Pressure Source Automatic Cuff Blood Pressure Location Left Upper Arm Position Sitting Respiration 18 Pulse 112 H Pulse Source Monitor Temp 98.2 F Temp Source Oral Pulse Oximetry (%) 98 Oxygen Delivery Method Room Air Allergies/Home Meds Allergies & Medications Allergies ferumoxytol (From [employer]) Allergy (Verified 04/04/25 14:08) No Known Drug Allergies Allergy (Verified 04/04/25 14:08) Medication Reconciliation vits no.124-ferrous fum 27 mg iron-folic acid 800 mcg tablet ( Vitamin) 1 tab PO 1XD 03/23/22 [History Confirmed 04/04/25] ursodiol 300 mg capsule 300 mg PO BID 03/23/22 [History Confirmed 04/04/25] pantoprazole 40 mg tablet,delayed release (Protonix) 40 mg PO QDAY #20 tabs 08/12/23 [Rx Confirmed 04/04/25] ferrous sulfate 325 mg (65 mg iron) tablet 325 mg PO BID #60 tabs 02/09/25 [Rx Confirmed 04/04/25] vitamin-ferrous fumarate 28 mg iron-folic acid 800 mcg tablet ( Vitamins with Minerals) 1 tab PO QDAY #60 tabs 02/09/25 [Rx Confirmed 04/04/25] Immunizations Immunizations Flu Vaccine in the Last 12 Months: No Flu Vaccine Exclusion Criteria: No Exclusion Criteria Care OB Visit Log OB Flowsheet Initial Weight: Not Recorded Date -?-?-?-?-?-?-?-?-?-?-?-?- EGA Weight BP Alb Glu CTX Pres Fundal ht FHR Mov Dilation Station Effacement Hx Notes Visit Note 02/09/25 -?-?-?-?-?-?-?-?-?-?-?-?- 11w 4d 62.823 kg 108/71 absent unknown 11 145 absent 24-year-old 2 para 1 for OBI. Patient has a history of severe anemia. She had iron infusion July 25, 2024. Happy about the . Last period November 20, 2024. Estimated due date August 27, 2024. Unsure dates. She denies bleeding, leaking or contractions. NIPT and adeola r screens. OB panel. Iron to take twice daily. I refilled prenatals. Schedule patient with Dr. Taylor for anatomy scan and follow-up. Discussed SAB precautions. Return in 4 weeks OB to 03/07/25 -?-?-?-?-?-?-?-?-?-?-?-?- 15w 2d 62.766 kg 112/72 absent unknown 15 145 absent No OB complaints. Doing well. Denies leaking bleeding or contractions aFP today. Discussed NIPT results. Follow-up with Dr. Taylor for OB sono. Discussed SAB precautions. Work referral today return in 4 weeks OB check 04/04/25 -?-?-?-?-?-?-?-?-?-?-?-?- 19w 2d 63.503 kg 123/82 absent unknown 19 145 absent Reports good movement. No OB complaints. Patient has a follow-up MFM appointment MayMay 23 . Discussed pre term labor precautions. Labs reviewed with patient. SAB precautions. And keep appointment with maternal- medicine for sono May 23. Return in 4 weeks OB check CHE Calculator Estimated Delivery Date Method Current WG Current Estimate 08/27/25 LMP (Certain) 19w 2d Notes Visit Date: 04/04/25 Last Updated by: Tara Case CNM 03/15 Platelets: 147. repeat 28 week Visit Date: 03/07/25 Last Updated by: Tara Case CNM ob panel: B+,abs-,rpr;;nr, rub imm, hbsag-,hiv-,hc-, G/CT-, A1: 5.3, nipt/carrier screen- Visit Date: 02/09/25 Last Updated by: Tara Case CNM 24 yo . lmp 11/20/14. EDC; 08/27/25 Office Procedures OBC Clinic LOC & Office Proc's Nursing/Assessment Patient Status: Established Patient OB Clinic Nursing Assessment: Medication Reconciliation, Update PMH in EMR and Vital Signs OB Clinic Coordination of Care: Consent,records obtained, informed consent, Education Simp Pt/Fam, Lab and Imaging orders, Results/Orders obtained and Staff clarify orders Special Needs: Heart tones Established Patient Charge Established Patient Point Assignment: 110 Established Patient Point Charge: EP Level 3 (80-115) Assessment & Plan Diagnosis / Problem List (1) Encounter for supervision of high risk in second trimester, antepartum: Status: Acute Plan Repeat platelets third trimester labs. Discussed labor precautions. Patient has results of NIPT. We discussed other labs. Okay to take vitamin D. Continue Additional Plan Follow Up: 4 Weeks (obc)
== END 2025-04-04 14:59 | disposition home or self-care (01) ==
LOC: HODSOBC 14:01
PROVIDERS: Supervising Provider Advanced Practice Midwife; Visit Provider Advanced Practice Midwife
DX: O09.92 Supervision of high risk pregnancy, unspecified, second trimester (principal); Z3A.19 19 weeks gestation of pregnancy
CPT/HCPCS: 99213; G0463